=== PATIENT | female | born 1940 | race African-American/Black ===

== ENCOUNTER 2019-04-18 18:41 | Emergency (ER) | payer MEDICARE ==
--- NOTE | 2019-04-18 19:16 | Event Note ---
ED Screening Note Date of service: 04/18/19 Time: 19:15 ED Screening Note: Chest pain This initial assessment/diagnostic orders/clinical plan/treatment(s) is/are subject to change based on patients health status, clinical progression and re- assessment by fellow clinical providers in the ED. Further treatment and workup at subsequent clinical providers discretion. Patient/guardian urged not to elope from the ED as their condition may be serious if not clinically assessed and managed. Initial orders include:
--- NOTE | 2019-04-18 19:50 | XRay Report ---
CHEST 1 VIEW INDICATION / CLINICAL INFORMATION: Chest Pain. COMPARISON: 05/27/2010 FINDINGS: SUPPORT DEVICES: None. HEART / MEDIASTINUM: Critics silhouette size is upper limits of normal. LUNGS / PLEURA: There is mild pulmonary vascular congestion present. The lungs are otherwise grossly clear. No significant pleural effusion. No pneumothorax. ADDITIONAL FINDINGS: No significant additional findings. IMPRESSION: 1. Mild pulmonary vascular congestion. The lungs are grossly clear otherwise.. Signer Name: Sharmaine Freeman MD Signed: 04/18/2019 7:46 PM Workstation Name: [id number]
[2019-04-18 19:51] LABS: Basophils # (Auto) 0.1 K/mm3 (0.0-0.1); Eosinophils # (Auto) 0.3 K/mm3 (0.0-0.4); Eosinophils % (Auto) 3.5 % (0.0-4.3); Hematocrit 39.1 % (30.3-42.9); Hemoglobin 12.6 gm/dl (10.1-14.3); Lymphocytes # (Auto) 2.3 K/mm3 (1.2-5.4); Lymphocytes % (Auto) 26.4 % (13.4-35.0); Mean Corpuscular HGB Conc 32 % (30-34); Monocytes # (Auto) 0.8 K/mm3 (0.0-0.8); Monocytes % (Auto) 9.6 % (0.0-7.3); Platelet Count 215 K/mm3 (140-440); Red Blood Count 5.62 M/mm3 (3.65-5.03); Red Cell Distribution Width 15.8 % (13.2-15.2)
[2019-04-18 19:53] LABS: Mean Corpuscular Volume 70 fl (79-97)
[2019-04-18 20:16] LABS: BUN/Creatinine Ratio 24; Blood Urea Nitrogen 19 mg/dL (7-17); Calcium 9.8 mg/dL (8.4-10.2); Hemolysis Index 6
[2019-04-18] MEDS ORDERED: MORPHINE 4 MG/1 ML INJ IV ONE (20:57)
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
[2019-04-18] MEDS ORDERED: HYDROmorphone 1 MG/1 ML INJ ONE (23:13)
[2019-04-18] MEDS ORDERED: HYDROmorphone 1 MG/1 ML INJ IV ONE (23:24)
[2019-04-19] MEDS ORDERED: ONDANSETRON 4 MG/2 ML INJ ONE (00:33)
[2019-04-19] MEDS ORDERED: HYDROmorphone 1 MG/1 ML INJ IV ONE (00:34)
[2019-04-19] MEDS ORDERED: ONDANSETRON 4 MG/2 ML INJ IV ONE (00:35)
[2019-04-19 01:03] VITALS: BP 107/71
== END 2019-04-19 00:40 | disposition other institution (70) ==
LOC: ED 18:41
DX: S22.22XA Fracture of body of sternum, initial encounter for closed fracture (principal); R07.89 Other chest pain; J81.0 Acute pulmonary edema; I10 Essential (primary) hypertension; E11.9 Type 2 diabetes mellitus without complications; Z98.890 Other specified postprocedural states; Z79.899 Other long term (current) drug therapy; V49.59XA Passenger injured in collision with other motor vehicles in traffic accident, initial encounter; Y93.89 Activity, other specified; Y92.488 Other paved roadways as the place of occurrence of the external cause; Y99.8 Other external cause status
CPT/HCPCS: 36415; 71045; 71275; 80048; 84484; 85025; 93005; 93010; 96374; 96375; 96376; 99285; J1170; J2270; J2405; Q9967

== ENCOUNTER 2020-02-10 15:52 | Emergency (ER) | payer MEDICARE ==
[2020-02-10] MEDS ORDERED: SODIUM CHLORIDE 0.9% 500 ML 500 ML IV ONE (16:25)
[2020-02-10] MEDS ORDERED: ACETAMINOPHEN 325 MG TAB ONE (16:29)
[2020-02-10] MEDS ORDERED: ACETAMINOPHEN 325 MG TAB PO ONE (16:32)
--- NOTE | 2020-02-10 17:06 | XRay Report ---
CHEST 2 VIEWS INDICATION / CLINICAL INFORMATION: possible Sepsis. COMPARISON: April 18 2019 FINDINGS: SUPPORT DEVICES: None. HEART / MEDIASTINUM: No significant abnormality. LUNGS / PLEURA: Mild bibasilar atelectasis similar when compared to 04/18/2019. No significant pulmona ry or pleural abnormality. No pneumothorax. ADDITIONAL FINDINGS: No significant additional findings. IMPRESSION: 1. No acute findings. Signer Name: Justice Carlson MD Signed: 02/10/2020 5:02 PM Workstation Name: [id number]
[2020-02-10 17:14] LABS: Basophils # (Auto) 0.1 K/mm3 (0.0-0.1); Basophils % (Auto) 0.7 % (0.0-1.8); Eosinophils % (Auto) 0.2 % (0.0-4.3); Hematocrit 38.3 % (30.3-42.9); Hemoglobin 12.4 gm/dl (10.1-14.3); Lymphocytes # (Auto) 1.8 K/mm3 (1.2-5.4); Lymphocytes % (Auto) 20.4 % (13.4-35.0); Mean Corpuscular HGB Conc 32 % (30-34); Mean Corpuscular Volume 70 fl (79-97); Monocytes # (Auto) 1.1 K/mm3 (0.0-0.8); Monocytes % (Auto) 12.4 % (0.0-7.3); Platelet Count 231 K/mm3 (140-440); Red Blood Count 5.46 M/mm3 (3.65-5.03); Red Cell Distribution Width 16.5 % (13.2-15.2)
[2020-02-10 17:34] LABS: Alanine Aminotransferase 26 units/L (7-56); Albumin 4.1 g/dL (3.9-5); BUN/Creatinine Ratio 21; Blood Urea Nitrogen 17 mg/dL (7-17); Hemolysis Index 2
[2020-02-10 17:44] LABS: INR 1.05 (0.87-1.13)
--- NOTE | 2020-02-11 09:11 | Emergency Department Report ---
HPI - General Chief Complaint: Dyspnea/Respdistress Time Seen by Provider: 02/11/20 08:11 - HPI HPI: This is an 79-year-old female who presents to the emergency department from the office of her PCP with a complaint of a 3-day history of fever, mixed dry and productive cough, shortness of breath, chills and generalized body aches. She was seen by her PCP yesterday, Dr. Alex Ibarra, and sent in for further evaluation with concern of COVID-19. no Covid test done. Patient has a past medical history of hypertension and diabetes. No recent travel or sick contacts at home. No known exposure to anyone with COVID-19. Patient does complain of some chest, or chest wall, discomfort that occurs when the patient is coughing. She denies any lower extremity swelling, abdominal pain, vomiting, diarrhea. The patient does not speak any [place], but the patient's daughter is currently at bedside translating for us. ED Past Medical Hx - Past Medical History Previous Medical History?: Yes Hx Hypertension: Yes Hx Diabetes: Yes - Surgical History Additional Surgical History: Unk, possible liver surgery - Social History Smoking Status: Never Smoker Substance Use Type: None - Medications Home Medications: Home Medications Medication Instructions Recorded Confirmed Last Taken Type Amlodipine Bes/Olmesartan Med 5 mg PO DAILY 05/20/13 11/15/14 05/18/13 History [Murray 10-20 mg] Metoprolol [Lopressor TAB] 25 mg PO DAILY 05/20/13 11/15/14 05/18/13 History [place]-3 Fatty Acids/Fish Oil [Fish 1,000 mg PO DAILY 05/20/13 11/15/14 05/18/13 History Oil] raNITIdine HCL [Ranitidine 300mg 300 mg PO DAILY 05/20/13 11/15/14 05/18/13 History Cap] Ondansetron [Zofran TAB] 4 mg PO Q6HR PRN #10 tablet 11/07/13 11/15/14 Unknown Rx traMADoL [Ultram 50 MG tab] 50 mg PO Q6HR PRN #14 tablet 11/07/13 11/15/14 Unknown Rx Aspirin [Aspirin BABY CHEW TAB] 81 mg PO QDAY tab.chew 11/16/14 Unknown Rx Albuterol Mdi (or & Nicu Only) 2 puff IH QID PRN #8.5 gram 02/11/20 Unknown Rx [ProAir HFA Inhaler] Benzonatate [Tessalon Perles] 100 mg PO Q8HR PRN #20 capsule 02/11/20 Unknown Rx predniSONE [Deltasone] 20 mg PO QDAY #3 tab 02/11/20 Unknown Rx ED Review of Systems ROS: Stated complaint: SOB/FEVER/COUGHING Other details as noted in HPI Comment: All other systems reviewed and negative Constitutional: chills, fever Eyes: denies: eye pain, vision change ENT: denies: ear pain, throat pain Respiratory: cough, shortness of breath Cardiovascular: chest pain. denies: palpitations, edema Gastrointestinal: denies: abdominal pain, vomiting Genitourinary: denies: dysuria, discharge Musculoskeletal: myalgia. denies: joint swelling Skin: denies: rash, lesions Neurological: denies: numbness, paresthesias Physical Exam - Physical Exam Vital Signs: Vital Signs 02/10/20 02/11/20 02/11/20 16:22 04:31 08:15 Temperature 101.9 F H 100.4 F H 98.7 F Pulse Rate 113 H 116 H Respiratory 24 19 Rate Blood Pressure 120/63 Blood Pressure 133/78 [Right] O2 Sat by Pulse 94 92 Oximetry 02/11/20 08:19 Temperature Pulse Rate 100 H Respiratory 23 Rate Blood Pressure Blood Pressure 109/75 [Right] O2 Sat by Pulse 95 Oximetry Physical Exam: GENERAL: The patient is well-developed well-nourished. HENT: Normocephalic. Atraumatic. Patient has moist mucous membranes. EYES: Extraocular motions are intact. NECK: Supple. Trachea is midline. CHEST/LUNGS: Clear to auscultation. A productive sounding cough heard during examination. No tachypnea or accessory muscle use. There is no respiratory distress noted. HEART/CARDIOVASCULAR: Regular. There is mild tachycardia. There is no murmur. ABDOMEN: Abdomen is soft, nontender. Patient has normal bowel sounds. SKIN: Skin is warm and dry. NEURO: The patient is awake, alert, and oriented. The patient is cooperative. Normal speech. MUSCULOSKELETAL: There is no tenderness or deformity. There is no limitation range of motion. ED Course Vital Signs 02/10/20 02/11/20 02/11/20 16:22 04:31 08:15 Temperature 101.9 F H 100.4 F H 98.7 F Pulse Rate 113 H 116 H Respiratory 24 19 Rate Blood Pressure 120/63 Blood Pressure 133/78 [Right] O2 Sat by Pulse 94 92 Oximetry 02/11/20 08:19 Temperature Pulse Rate 100 H Respiratory 23 Rate Blood Pressure Blood Pressure 109/75 [Right] O2 Sat by Pulse 95 Oximetry - Reevaluation(s) Reevaluation #1: 02/11/20 15:05 Lab Results 02/10/20 02/10/20 02/10/20 Range/Units 17:04 17:04 17:04 WBC 9.0 (4.5-11.0) K/mm3 RBC 5.46 H (3.65-5.03) M/mm3 Hgb 12.4 (10.1-14.3) gm/dl Hct 38.3 (30.3-42.9) % MCV 70 L (79-97) fl MCH 23 L (28-32) pg MCHC 32 (30-34) % RDW 16.5 H (13.2-15.2) % Plt Count 231 (140-440) K/mm3 Lymph % (Auto) 20.4 (13.4-35.0) % [place] % (Auto) 12.4 H (0.0-7.3) % Eos % (Auto) 0.2 (0.0-4.3) % Baso % (Auto) 0.7 (0.0-1.8) % Lymph # (Auto) 1.8 (1.2-5.4) K/mm3 [place] # (Auto) 1.1 H (0.0-0.8) K/mm3 Eos # (Auto) 0.0 (0.0-0.4) K/mm3 Baso # (Auto) 0.1 (0.0-0.1) K/mm3 Seg Neutrophils % 66.3 (40.0-70.0) % Seg Neutrophils # 6.0 (1.8-7.7) K/mm3 PT 13.6 (12.2-14.9) Sec. INR 1.05 (0.87-1.13) D-Dimer (0-234) ng/mlDDU VBG pH (7.320-7.420) Sodium 132 L (137-145) mmol/L Potassium 3.7 (3.6-5.0) mmol/L Chloride 96.4 L (98-107) mmol/L Carbon Dioxide 23 (22-30) mmol/L Anion Gap 16 mmol/L BUN 17 (7-17) mg/dL Creatinine 0.8 (0.6-1.2) mg/dL Estimated GFR > 60 ml/min BUN/Creatinine Ratio 21 % Glucose 172 H (65-100) mg/dL Lactic Acid (0.7-2.0) mmol/L Calcium 9.0 (8.4-10.2) mg/dL Ferritin (10.0-200.0) ng/mL Total Bilirubin 0.20 (0.1-1.2) mg/dL AST 21 (5-40) units/L ALT 26 (7-56) units/L Alkaline Phosphatase 57 (35-129) units/L Lactate Dehydrogenase (91-180) units/L Troponin T (0.00-0.029) ng/mL C-Reactive Protein (0.00-1.30) mg/dL Total Protein 7.7 (6.3-8.2) g/dL Albumin 4.1 (3.9-5) g/dL Albumin/Globulin Ratio 1.1 % Procalcitonin (<0.15) ng/mL Urine Color (Yellow) Urine Turbidity (Clear) Urine pH (5.0-7.0) Ur Specific Arthur (1.003-1.030) Urine Protein (Negative) mg/dL Urine Glucose (UA) (Negative) mg/dL Urine Ketones (Negative) mg/dL Urine Blood (Negative) Urine Nitrite (Negative) Urine Bilirubin (Negative) Urine Urobilinogen (<2.0) mg/dL Ur Leukocyte Esterase (Negative) Urine WBC (Auto) (0.0-6.0) /HPF Urine RBC (Auto) (0.0-6.0) /HPF U Epithel Cells (Auto) (0-13.0) /HPF Urine Mucus /HPF 02/10/20 02/10/20 02/10/20 Range/Units 17:04 17:04 19:42 WBC (4.5-11.0) K/mm3 RBC (3.65-5.03) M/mm3 Hgb (10.1-14.3) gm/dl Hct (30.3-42.9) % MCV (79-97) fl MCH (28-32) pg MCHC (30-34) % RDW (13.2-15.2) % Plt Count (140-440) K/mm3 Lymph % (Auto) (13.4-35.0) % [place] % (Auto) (0.0-7.3) % Eos % (Auto) (0.0-4.3) % Baso % (Auto) (0.0-1.8) % Lymph # (Auto) (1.2-5.4) K/mm3 [place] # (Auto) (0.0-0.8) K/mm3 Eos # (Auto) (0.0-0.4) K/mm3 Baso # (Auto) (0.0-0.1) K/mm3 Seg Neutrophils % (40.0-70.0) % Seg Neutrophils # (1.8-7.7) K/mm3 PT (12.2-14.9) Sec. INR (0.87-1.13) D-Dimer (0-234) ng/mlDDU VBG pH 7.476 H (7.320-7.420) Sodium (137-145) mmol/L Potassium (3.6-5.0) mmol/L Chloride (98-107) mmol/L Carbon Dioxide (22-30) mmol/L Anion Gap mmol/L BUN (7-17) mg/dL Creatinine (0.6-1.2) mg/dL Estimated GFR ml/min BUN/Creatinine Ratio % Glucose (65-100) mg/dL Lactic Acid 2.20 H* 1.60 (0.7-2.0) mmol/L Calcium (8.4-10.2) mg/dL Ferritin (10.0-200.0) ng/mL Total Bilirubin (0.1-1.2) mg/dL AST (5-40) units/L ALT (7-56) units/L Alkaline Phosphatase (35-129) units/L Lactate Dehydrogenase (91-180) units/L Troponin T (0.00-0.029) ng/mL C-Reactive Protein (0.00-1.30) mg/dL Total Protein (6.3-8.2) g/dL Albumin (3.9-5) g/dL Albumin/Globulin Ratio % Procalcitonin (<0.15) ng/mL Urine Color (Yellow) Urine Turbidity (Clear) Urine pH (5.0-7.0) Ur Specific Arthur (1.003-1.030) Urine Protein (Negative) mg/dL Urine Glucose (UA) (Negative) mg/dL Urine Ketones (Negative) mg/dL Urine Blood (Negative) Urine Nitrite (Negative) Urine Bilirubin (Negative) Urine Urobilinogen (<2.0) mg/dL Ur Leukocyte Esterase (Negative) Urine WBC (Auto) (0.0-6.0) /HPF Urine RBC (Auto) (0.0-6.0) /HPF U Epithel Cells (Auto) (0-13.0) /HPF Urine Mucus /HPF 02/11/20 02/11/20 02/11/20 Range/Units 09:56 09:56 09:56 WBC (4.5-11.0) K/mm3 RBC (3.65-5.03) M/mm3 Hgb (10.1-14.3) gm/dl Hct (30.3-42.9) % MCV (79-97) fl MCH (28-32) pg MCHC (30-34) % RDW (13.2-15.2) % Plt Count (140-440) K/mm3 Lymph % (Auto) (13.4-35.0) % [place] % (Auto) (0.0-7.3) % Eos % (Auto) (0.0-4.3) % Baso % (Auto) (0.0-1.8) % Lymph # (Auto) (1.2-5.4) K/mm3 [place] # (Auto) (0.0-0.8) K/mm3 Eos # (Auto) (0.0-0.4) K/mm3 Baso # (Auto) (0.0-0.1) K/mm3 Seg Neutrophils % (40.0-70.0) % Seg Neutrophils # (1.8-7.7) K/mm3 PT (12.2-14.9) Sec. INR (0.87-1.13) D-Dimer 377.73 H (0-234) ng/mlDDU VBG pH (7.320-7.420) Sodium (137-145) mmol/L Potassium (3.6-5.0) mmol/L Chloride (98-107) mmol/L Carbon Dioxide (22-30) mmol/L Anion Gap mmol/L BUN (7-17) mg/dL Creatinine (0.6-1.2) mg/dL Estimated GFR ml/min BUN/Creatinine Ratio % Glucose 122 H (65-100) mg/dL Lactic Acid (0.7-2.0) mmol/L Calcium (8.4-10.2) mg/dL Ferritin 372.5 H (10.0-200.0) ng/mL Total Bilirubin (0.1-1.2) mg/dL AST (5-40) units/L ALT (7-56) units/L Alkaline Phosphatase (35-129) units/L Lactate Dehydrogenase 176 (91-180) units/L Troponin T < 0.010 (0.00-0.029) ng/mL C-Reactive Protein 4.60 H (0.00-1.30) mg/dL Total Protein (6.3-8.2) g/dL Albumin (3.9-5) g/dL Albumin/Globulin Ratio % Procalcitonin (<0.15) ng/mL Urine Color (Yellow) Urine Turbidity (Clear) Urine pH (5.0-7.0) Ur Specific Arthur (1.003-1.030) Urine Protein (Negative) mg/dL Urine Glucose (UA) (Negative) mg/dL Urine Ketones (Negative) mg/dL Urine Blood (Negative) Urine Nitrite (Negative) Urine Bilirubin (Negative) Urine Urobilinogen (<2.0) mg/dL Ur Leukocyte Esterase (Negative) Urine WBC (Auto) (0.0-6.0) /HPF Urine RBC (Auto) (0.0-6.0) /HPF U Epithel Cells (Auto) (0-13.0) /HPF Urine Mucus /HPF 02/11/20 02/11/20 Range/Units 09:56 Unknown WBC (4.5-11.0) K/mm3 RBC (3.65-5.03) M/mm3 Hgb (10.1-14.3) gm/dl Hct (30.3-42.9) % MCV (79-97) fl MCH (28-32) pg MCHC (30-34) % RDW (13.2-15.2) % Plt Count (140-440) K/mm3 Lymph % (Auto) (13.4-35.0) % [place] % (Auto) (0.0-7.3) % Eos % (Auto) (0.0-4.3) % Baso % (Auto) (0.0-1.8) % Lymph # (Auto) (1.2-5.4) K/mm3 [place] # (Auto) (0.0-0.8) K/mm3 Eos # (Auto) (0.0-0.4) K/mm3 Baso # (Auto) (0.0-0.1) K/mm3 Seg Neutrophils % (40.0-70.0) % Seg Neutrophils # (1.8-7.7) K/mm3 PT (12.2-14.9) Sec. INR (0.87-1.13) D-Dimer (0-234) ng/mlDDU VBG pH (7.320-7.420) Sodium (137-145) mmol/L Potassium (3.6-5.0) mmol/L Chloride (98-107) mmol/L Carbon Dioxide (22-30) mmol/L Anion Gap mmol/L BUN (7-17) mg/dL Creatinine (0.6-1.2) mg/dL Estimated GFR ml/min BUN/Creatinine Ratio % Glucose (65-100) mg/dL Lactic Acid (0.7-2.0) mmol/L Calcium (8.4-10.2) mg/dL Ferritin (10.0-200.0) ng/mL Total Bilirubin (0.1-1.2) mg/dL AST (5-40) units/L ALT (7-56) units/L Alkaline Phosphatase (35-129) units/L Lactate Dehydrogenase (91-180) units/L Troponin T (0.00-0.029) ng/mL C-Reactive Protein (0.00-1.30) mg/dL Total Protein (6.3-8.2) g/dL Albumin (3.9-5) g/dL Albumin/Globulin Ratio % Procalcitonin < 0.05 (<0.15) ng/mL Urine Color Yellow (Yellow) Urine Turbidity Clear (Clear) Urine pH 6.0 (5.0-7.0) Ur Specific Arthur 1.018 (1.003-1.030) Urine Protein <15 mg/dl (Negative) mg/dL Urine Glucose (UA) 50 (Negative) mg/dL Urine Ketones Neg (Negative) mg/dL Urine Blood Sm (Negative) Urine Nitrite Neg (Negative) Urine Bilirubin Neg (Negative) Urine Urobilinogen < 2.0 (<2.0) mg/dL Ur Leukocyte Esterase Neg (Negative) Urine WBC (Auto) 2.0 (0.0-6.0) /HPF Urine RBC (Auto) 3.0 (0.0-6.0) /HPF U Epithel Cells (Auto) 2.0 (0-13.0) /HPF Urine Mucus Few /HPF ED Medical Decision Making - Lab Data Result diagrams: 02/10/20 17:04 02/11/20 09:56 - EKG Data -: EKG Interpreted by Me EKG shows normal: sinus rhythm, axis, intervals, QRS complexes, ST-T waves Rate: normal - EKG Data When compared to previous EKG there are: previous EKG unavailable Interpretation: normal EKG - Radiology Data Radiology results: report reviewed, image reviewed interpreted by me: Chest x-ray does not show any acute process. There are no pleural effusions, obvious pneumonia and there is no pneumothorax. No significant cardiomegaly. CTA chest with contrast INDICATION : SOB, elevated dimer. TECHNIQUE: Axial imaging performed through the chest, with contrast bolus timing set to maximize opacification of the pulmonary arteries. 3-plane MIP reformatted images were obtained. All CT scans at this location are performed using CT dose reduction for ALARA by means of automated exposure control. 100 mL of intravenous contrast administered. COMPARISON: CTA chest from 04/18/1999 FINDINGS: Bolus: Contrast bolus timing is adequate. PTE: No filling defect is present to suggest PTE. Mediastinum: Heart and great vessels appear normal. No pathologic mediastinal adenopathy. Lungs: There is minimal streaky bibasilar airspace disease which most likely at least in part reflects atelectasis. No dense consolidation or pleural effusion. Upper abdomen: Limited imaging of the upper abdomen shows nothing acute. Several tiny hepatic cysts are present. Bones: Degenerative changes in the spine with nothing acute. IMPRESSION: 1. Negative for PTE. 2. Streaky bibasilar atelectasis. - Medical Decision Making This patient presents to the emergency department from the office of her PCP yesterday with complaint of shortness of breath, cough and fever with concern for patient having COVID-19. There was no report or mention of the patient having any hypoxia. Patient's chart was first presented to me, and the patient brought back to the main emergency department, shortly after my shift began at 6 AM this morning. Chest x-ray did not show any pneumonia, pleural effusions, pneumothorax, or any acute process. The patient's labs are mostly unremarkable except for elevated inflammatory markers that could be consistent with a COVID-19 infection. Because of the complaint of shortness of breath and the elevated D-dimer level, the patient had a CT angiography of the chest completed. The results do not show any evidence of pulmonary embolism, or any other acute process. The patient has been reevaluated multiple times over multiple hours and has remained stable. Vital signs have been reassuring throughout her ED course. Patient had an initial fever of about 102 F but it came down and stayed down with 1 dose of Tylenol given. The patient has not had any hypoxia either at rest, or after a 2-minute exertional test. For all these reasons the patient appears safe for discharge home at this time. She appears to have a viral upper respiratory infection. Given the elevated inflammatory markers found on her labs, as well as the current pandemic, there is a high suspicion that the patient could have COVID-19. Unfortunately we do not have [id number] testing for COVID-19 at this time and I am unable to test her for it through the emergency department. Patient will be given a prescription for steroids, an albuterol inhaler and an antitussive medication. We discussed isolation/quarantine from those who are immunocompromised, elderly, or chronically ill/debilitated. They will seek outpatient COVID-19 testing. We discussed getting a finger pulse oximetry monitor. She will return to the emergency department with any worsening of her symptoms or with any acute distress. Critical Care Time: No Critical care attestation.: If time is entered above; I have spent that time in minutes in the direct care of this critically ill patient, excluding procedure time. ED Disposition Clinical Impression: Suspected 2019 novel coronavirus infection, Viral upper respiratory tract infe ction Disposition: DC-01 TO HOME OR SELFCARE Is pt being admited?: No Condition: Stable Instructions: COVID-19, Viral Respiratory Infection Additional Instructions: Please follow-up with your primary care physician in the next few days. You appear to have a viral upper respiratory infection. Given the current pandemic, I have suspicion that you have COVID-19. I am unable to test you for COVID-19 at this time through the emergency department. I recommend that you s chenega outpatient COVID-19 testing. This can be done at some primary care offices, some urgent cares, and there should be a listing of testing facilities through the [facility]. Please isolate/quarantine away from anybody who is immunocompromised, elderly, or chronically ill/debilitated. Take your medications as prescribed. I recommend that you try to obtain a finger pulse oximeter, which can tell your oxygen saturation. If the oxygen saturation drops into the low 90s or below, you have any worsening of your symptoms, new or concerning symptoms not addressed during this emergency department, or any signs of distress, please go to the closest emergency department. Prescriptions: predniSONE [Deltasone] 20 mg PO QDAY #3 tab Albuterol Mdi (or & Nicu Only) [ProAir HFA Inhaler] 2 puff IH QID PRN #8.5 gram PRN Reason: Shortness Of Breath Benzonatate [Tessalon Perles] 100 mg PO Q8HR PRN #20 capsule PRN Reason: Cough Referrals: ALEX IBARRA MD [Staff Physician] - 2-3 Days Time of Disposition: 13:01
[2020-02-11 09:55] LABS: Bilirubin,Urine NEG (Negative); Blood,Urine SM (Negative); Color,Urine Yellow (Yellow); Mucus,Urine FEW /HPF; Protein,Urine <15 mg/dL mg/dL (Negative); Urobilinogen,Urine < 2.0 mg/dL (<2.0)
[2020-02-11] MEDS ORDERED: ALBUTEROL 8.5 GM MDI INHALATION IH ONE (10:46)
[2020-02-11] MEDS ORDERED: methylPREDNISolone Sod Succinate 125 MG/2 ML INJ IV ONE (10:46)
--- NOTE | 2020-02-11 12:37 | Cat Scan Report ---
CTA chest with contrast INDICATION : SOB, elevated dimer. TECHNIQUE: Axial imaging performed through the chest, with contrast bolus timing set to maximize opa cification of the pulmonary arteries. 3-plane MIP reformatted images were obtained. All CT scans at this location are performed using CT dose reduction for ALARA by means of automated exposure control. 100 mL of intravenous contrast administered. COMPARISON: CTA chest from 04/18/1999 FINDINGS: Bolus: Contrast bolus timing is adequate. PTE: No filling defect is present to suggest PTE. Mediastinum: Heart and great vessels appear normal. No pathologic mediastinal adenopathy. Lungs: There is minimal streaky bibasilar airspace disease which most likely at least in part reflec ts atelectasis. No dense consolidation or pleural effusion. Upper abdomen: Limited imaging of the upper abdomen shows nothing acute. Several tiny hepatic cysts are present. Bones: Degenerative changes in the spine with nothing acute. IMPRESSION: 1. Negative for PTE. 2. Streaky bibasilar atelectasis. Signer Name: Francisco Jamison MD Signed: 02/11/2020 12:33 PM Workstation Name: [id number]
[2020-02-11 12:55] VITALS: BP 110/61
== END 2020-02-11 13:58 | disposition home or self-care (01) ==
LOC: ED 15:52
DX: J06.9 Acute upper respiratory infection, unspecified (principal); Z20.828 Contact with and (suspected) exposure to other viral communicable diseases; I10 Essential (primary) hypertension; E11.9 Type 2 diabetes mellitus without complications; Z79.899 Other long term (current) drug therapy; Z98.890 Other specified postprocedural states
CPT/HCPCS: 36415; 71046; 71275; 80053; 81001; 82140; 82728; 82805; 82947; 83615; 84145; 84484; 85025; 85379; 85610; 86140; 87040; 87086; 93005; 96374; 99285; J2930; Q9967